=== PATIENT | female | born 1985 ===

== ENCOUNTER 2022-08-18 06:00 | Day surgery (SDC) | payer OTHER ==
[~2022-08-18 06:00] MED LIST: OMEPRAZOLE20 MG PO; VISTARIL50 MG PO
== END 2022-08-18 16:55 | disposition home or self-care (01) ==
LOC: CIR.AMB 06:00 → EDBD 07:30 → CIR.AMB 07:30
PROVIDERS: ATTEND Student in an Organized Health Care Education/Training Program
DX: N84.0 Polyp of corpus uteri (principal); N93.8 Other specified abnormal uterine and vaginal bleeding; Z20.822 Contact with and (suspected) exposure to COVID-19; I10 Essential (primary) hypertension